=== PATIENT | female | born 1945 | race Caucasian/White ===

== ENCOUNTER 2017-04-21 19:54 | Emergency (ER) | payer MEDICARE, OTHER ==
[~2017-04-21] VITALS: Ht 154.9 cm; Wt 70.3 kg
[~2017-04-21 19:54] MED LIST: CLID1CAP PO; CLOP75TA15 PO; DONE10TA11 PO; DULO30CA2 PO; LEVO88TA2 PO; LORA1TAB PO; MIRT30TA PO; PROP10TA10 PO; SIMV40TA2 PO; SITA1TBM4 PO; [UNRECOGNIZED DRUG - CODE] PO; [UNRECOGNIZED DRUG - CODE] PO
--- NOTE | 2017-04-21 21:15 | NUR ---
[employer] phone used for [employer] translation, Check Processing Clerk #[id number]
[2017-04-21] MEDS ORDERED: IV NORMAL SALINE 500 ML BAG IV ONE (21:30)
[2017-04-21 22:05] LABS: CREATININE 0.8 mg/dL (0.6-1.3); POTASSIUM 3.7 mmol/L (3.5-5.1)
[2017-04-21 22:11] LABS: BASOPHILS % (AUTO) 0.3 % (0.0-2.0); EOSINOPHILS # (AUTO) 0.2 K/uL (0.0-0.7); EOSINOPHILS % (AUTO) 1.9 % (0.0-7.0); HEMATOCRIT 36.4 % (37-47); HEMOGLOBIN 12.2 G/DL (12.0-16.0); LYMPHOCYTES # (AUTO) 2.5 K/UL (0.8-4.8); LYMPHOCYTES % (AUTO) 24.2 % (20.5-51.5); MEAN CORPUSCULAR HEMOGLOBIN 29.2 UUG (27.0-31.0); MEAN CORPUSCULAR HGB CONC 34 g/dL (32.0-37.0); MEAN CORPUSCULAR VOLUME 87.1 FL (81.0-99.0); MONOCYTES # (AUTO) 0.7 K/UL (0.1-1.30); NEUTROPHILS # (AUTO) 6.8 K/UL (1.8-8.9); NEUTROPHILS % (AUTO) 66.6 % (38.5-71.5); PLATELET COUNT (AUTO) 418 K/UL (150-450); RED BLOOD CELL COUNT(AUTO) 4.17 MIL/UL (4.2-5.4); WHITE BLOOD COUNT (AUTO) 10.2 K/UL (4.0-11.2)
[2017-04-21 22:23] LABS: BILIRUBIN,DIRECT 0.1 mg/dL (0.0-0.2); BILIRUBIN,TOTAL 0.3 mg/dL (0.2-1.0); TOTAL PROTEIN, SERUM 8.6 g/dL (6.4-8.2)
[2017-04-21 22:55] LABS: *BILIRUBIN,URIN NEGATIVE (NEGATIVE); *BLOOD, URINE NEGATIVE (NEGATIVE); *CLARITY,URINE CLEAR (CLEAR); *COLOR,URINE STRAW (YELLOW); *KETONES,URINE NEGATIVE (NEGATIVE); *PROTEIN,URINE NEGATIVE (NEGATIVE); *UROBILINOGEN,URINE 0.2 E.U./dl (NORMAL); LEUKOCYTE ESTERASE ,URINE NEGATIVE (NEGATIVE); NITRITE, URINE NEGATIVE (NEGATIVE); PH,URINE 6.5 (5.0-8.0)
[2017-04-21 22:59] LABS: UGLUCOSE 2+ (NEGATIVE)
[2017-04-21 23:04] LABS: BACTERIA,URINE NONE SEEN /HPF (NONE SEEN); RBC,URINE NONE SEEN /HPF (0-3); SQUAMOUS EPITHELIAL CELL,UR NONE SEEN /HPF (NONE SEEN); WBC,URINE NONE SEEN /HPF (0-3)
--- NOTE | 2017-04-21 23:11 | NUR ---
Patient discharged to home in stable conditon. Written and verbal after care instructions given. Patient, and her daughter, verbalize understanding of instructions.
[2017-04-21 23:12] VITALS: BP 148/78
== END 2017-04-21 23:18 | disposition home or self-care (01) ==
LOC: ER 19:55
DX: Z00.8 Encounter for other general examination (principal); K21.9 Gastro-esophageal reflux disease without esophagitis; E11.9 Type 2 diabetes mellitus without complications; I10 Essential (primary) hypertension; E03.9 Hypothyroidism, unspecified; F03.90 Unspecified dementia, unspecified severity, without behavioral disturbance, psychotic disturbance, mood disturbance, and anxiety
CPT/HCPCS: 36415; 70030-TC; 71010; 83605; 85025; 87040; 87086; 93005; A4663; J7030

== ENCOUNTER 2017-08-21 12:28 | Emergency (ER) | payer MEDICARE, OTHER ==
[~2017-08-21] VITALS: Ht 152.4 cm; Wt 63.5 kg
[2017-08-21] MEDS ORDERED: LEVO137T24 PO (12:55)
[2017-08-21] MEDS ORDERED: CHOL4PAC9 PO (12:55)
[2017-08-21] MEDS ORDERED: MG T1TAB4 PO (12:55)
[2017-08-21] MEDS ORDERED: GLIP-19 PO (12:55)
[2017-08-21] MEDS ORDERED: RANI300C PO (12:55)
[2017-08-21] MEDS ORDERED: ACET-2605 PO (12:55)
[2017-08-21] MEDS ORDERED: CLON1TAB PO (12:55)
[2017-08-21] MEDS ORDERED: SERT100T PO (12:55)
[2017-08-21] MEDS ORDERED: FLUT1BLS IH (12:55)
[2017-08-21] MEDS ORDERED: DICL100G16 TP (12:55)
[2017-08-21] MEDS ORDERED: DEXL60CA3 PO (12:55)
[2017-08-21] MEDS ORDERED: MEMA1CAP3 PO (12:55)
[2017-08-21] MEDS ORDERED: DULA1.5P SQ (12:55)
[2017-08-21] MEDS ORDERED: KETO15CR2 TP (12:55)
[2017-08-21] MEDS ORDERED: LISI-607 PO (12:55)
[2017-08-21] MEDS ORDERED: SIME80TA14 PO (12:55)
[2017-08-21] MEDS ORDERED: CANA300T PO (12:55)
[2017-08-21] MEDS ORDERED: CARV6.25 PO (12:55)
[2017-08-21] MEDS ORDERED: FOLI1TAB16 PO (12:55)
[2017-08-21] MEDS ORDERED: ONDANSETRON 4 MG/2 ML VIAL ONE (12:57)
[2017-08-21] MEDS ORDERED: MORPHINE SULFATE 4 MG/1 ML DISP.SYRIN ONE (12:57)
[2017-08-21] MEDS ORDERED: ONDANSETRON 4 MG/2 ML VIAL IV ONE (13:00)
[2017-08-21] MEDS ORDERED: MORPHINE SULFATE 2 MG/1 ML DISP.SYRIN IV ONE (13:00)
[2017-08-21] MEDS ORDERED: IV NORMAL SALINE 1000 ML BAG IV ONE (13:00)
[2017-08-21 13:13] LABS: BASOPHILS % (AUTO) 0.7 % (0.0-2.0); EOSINOPHILS # (AUTO) 0.1 K/uL (0.0-0.7); EOSINOPHILS % (AUTO) 1.4 % (0.0-7.0); HEMATOCRIT 35.7 % (31.2-41.9); HEMOGLOBIN 11.7 g/dL (10.9-14.3); LYMPHOCYTES # (AUTO) 1.6 K/uL (20.0-40.0); LYMPHOCYTES % (AUTO) 22.4 % (20.5-51.5); MEAN CORPUSCULAR HGB CONC 33 g/dL (32.3-35.6); MEAN CORPUSCULAR VOLUME 82.2 fL (75.5-95.3); MONOCYTES # (AUTO) 0.4 K/uL (2.0-10.0); MONOCYTES % (AUTO) 6.2 % (0.0-11.0); NEUTROPHILS % (AUTO) 69.3 % (38.5-71.5); PLATELET COUNT (AUTO) 382 K/uL (179-408); RED BLOOD CELL COUNT(AUTO) 4.34 MIL/uL (3.63-4.92); WHITE BLOOD COUNT (AUTO) 7.3 K/uL (3.8-11.8)
--- NOTE | 2017-08-21 13:13 | NUR ---
Pt out of Er for ct.
[2017-08-21 13:21] LABS: *BILIRUBIN,URIN NEGATIVE (NEGATIVE); *BLOOD, URINE NEGATIVE (NEGATIVE); *CLARITY,URINE CLEAR (CLEAR); *COLOR,URINE YELLOW (YELLOW); *KETONES,URINE NEGATIVE (NEGATIVE); *PROTEIN,URINE NEGATIVE (NEGATIVE); *UROBILINOGEN,URINE 0.2 E.U./dl (NORMAL); LEUKOCYTE ESTERASE ,URINE NEGATIVE (NEGATIVE); NITRITE, URINE NEGATIVE (NEGATIVE)
[2017-08-21 13:28] LABS: UGLUCOSE 2+ (NEGATIVE)
[2017-08-21 13:33] LABS: BACTERIA,URINE FEW /HPF (NONE SEEN); RBC,URINE 0-3 /HPF (0-3); SQUAMOUS EPITHELIAL CELL,UR FEW /HPF (NONE SEEN); WBC,URINE 0-3 /HPF (0-3)
[2017-08-21 14:02] LABS: CREATININE 0.7 mg/dL (0.6-1.3)
[2017-08-21 14:08] LABS: BILIRUBIN,DIRECT 0.1 mg/dL (0.0-0.2); BILIRUBIN,TOTAL 0.2 mg/dL (0.2-1.0); TOTAL PROTEIN, SERUM 7.6 g/dL (6.4-8.2)
--- NOTE | 2017-08-21 14:22 | NUR ---
IV removed. Catheter intact and site benign. Pressure and 4x4 gauze applied to site. No bleeding noted.
[2017-08-21 14:23] VITALS: BP 114/63
--- NOTE | 2017-08-21 14:24 | NUR ---
Patient discharged to home in stable conditon. Written and verbal after care instructions given. Patient verbalizes understanding of instructions.
== END 2017-08-21 14:24 | disposition home or self-care (01) ==
LOC: ER 12:29
DX: K59.00 Constipation, unspecified (principal); M54.31 Sciatica, right side; M54.9 Dorsalgia, unspecified; E11.9 Type 2 diabetes mellitus without complications; I10 Essential (primary) hypertension; K21.9 Gastro-esophageal reflux disease without esophagitis; E03.9 Hypothyroidism, unspecified; Z79.51 Long term (current) use of inhaled steroids; Z79.01 Long term (current) use of anticoagulants; Z79.899 Other long term (current) drug therapy; Z79.84 Long term (current) use of oral hypoglycemic drugs
CPT/HCPCS: 36415; 83690; 85025; 87086; A4663; J2270; J2405; J7030

== ENCOUNTER 2017-08-26 18:40 | Emergency (ER) | payer MEDICARE, OTHER ==
[~2017-08-26] VITALS: Ht 152.4 cm; Wt 70.8 kg
[~2017-08-26 18:40] MED LIST changes: +ACET-2605 PO; +CANA300T PO; +CARV6.25 PO; +CHOL4PAC9 PO; -CLID1CAP PO; +CLON1TAB PO; -CLOP75TA15 PO; +DEXL60CA3 PO; +DICL100G16 TP; -DONE10TA11 PO; +DULA1.5P SQ; -DULO30CA2 PO; +FLUT1BLS IH; +FOLI1TAB16 PO; +GLIP-19 PO; +KETO15CR2 TP; +LEVO137T24 PO; -LEVO88TA2 PO; +LISI-607 PO; +MEMA1CAP3 PO; +MG T1TAB4 PO; -MIRT30TA PO; -PROP10TA10 PO; +RANI300C PO; +SERT100T PO; +SIME80TA14 PO; -[UNRECOGNIZED DRUG - CODE] PO
--- NOTE | 2017-08-26 19:22 | NUR ---
XRAY AT PT BEDSIDE.
[2017-08-26 19:24] LABS: BASOPHILS # (AUTO) 0.1 K/uL (0.0-8.0); BASOPHILS % (AUTO) 0.8 % (0.0-2.0); EOSINOPHILS # (AUTO) 0.1 K/uL (0.0-0.7); EOSINOPHILS % (AUTO) 1.6 % (0.0-7.0); HEMATOCRIT 33.3 % (31.2-41.9); HEMOGLOBIN 11.1 g/dL (10.9-14.3); LYMPHOCYTES # (AUTO) 2.2 K/uL (20.0-40.0); LYMPHOCYTES % (AUTO) 26.3 % (20.5-51.5); MEAN CORPUSCULAR HEMOGLOBIN 27.1 uug (24.7-32.8); MEAN CORPUSCULAR HGB CONC 33 g/dL (32.3-35.6); MEAN CORPUSCULAR VOLUME 81.5 fL (75.5-95.3); MONOCYTES # (AUTO) 0.6 K/uL (2.0-10.0); MONOCYTES % (AUTO) 7.7 % (0.0-11.0); NEUTROPHILS # (AUTO) 5.2 K/uL (1.8-8.9); NEUTROPHILS % (AUTO) 63.6 % (38.5-71.5); PLATELET COUNT (AUTO) 419 K/uL (179-408); RED BLOOD CELL COUNT(AUTO) 4.09 MIL/uL (3.63-4.92); WHITE BLOOD COUNT (AUTO) 8.2 K/uL (3.8-11.8)
[2017-08-26] MEDS ORDERED: DEXTROSE 50% 50 ML DISP.SYRIN IV ONE (19:30)
[2017-08-26] MEDS ORDERED: IV NS 1000 ML 1,000 ML IV ONE (19:30)
[2017-08-26 19:34] LABS: ETHANOL < 3 MG/DL (0-0)
[2017-08-26 19:39] LABS: ACETAMINOPHEN < 2.0 ug/mL (10-30); ALANINE AMINOTRANSFERASE 22 U/L (14-59); ALKALINE PHOSPHATASE 75 U/L (50-136); ASPARTATE AMINOTRANSFERASE 16 U/L (15-37); BILIRUBIN,DIRECT 0.1 mg/dL (0.0-0.2); BILIRUBIN,TOTAL 0.1 mg/dL (0.2-1.0); CARBON DIOXIDE 28 mmol/L (21-32); CHLORIDE 92 mmol/L (98-107); CREATININE 0.7 mg/dL (0.6-1.3); GLUCOSE 63 mg/dL (74-106); POTASSIUM 4.1 mmol/L (3.5-5.1); TOTAL PROTEIN, SERUM 7.4 g/dL (6.4-8.2); UREA NITROGEN, BLOOD 6 mg/dL (7-18)
[2017-08-26] MEDS ORDERED: DEXTROSE 50% 50 ML DISP.SYRIN ONE (19:43)
[2017-08-26 19:47] LABS: THYROID STIMULATING HORMONE 1.702 mIU/mL (0.358-3.740)
[2017-08-26] MEDS ORDERED: DIVA250T6 PO (19:56)
[2017-08-26] MEDS ORDERED: DESV50TA20 PO (19:56)
[2017-08-26] MEDS ORDERED: METH-406 PO (19:56)
[2017-08-26] MEDS ORDERED: SITA1TAB6 PO (19:56)
[2017-08-26] MEDS ORDERED: BIFI460C PO (19:56)
[2017-08-26] MEDS ORDERED: CARI350T27 PO (19:56)
[2017-08-26] MEDS ORDERED: DIPH25CA83 PO (19:56)
[2017-08-26] MEDS ORDERED: DULO60CA45 PO (19:56)
[2017-08-26] MEDS ORDERED: RISP1TAB7 PO (19:56)
[2017-08-26] MEDS ORDERED: METO-295 PO (19:56)
[2017-08-26] MEDS ORDERED: RISP2TAB5 PO (19:56)
[2017-08-26] MEDS ORDERED: PROC10TA13 PO (19:56)
[2017-08-26] MEDS ORDERED: CALC1TAB91 PO (19:56)
[2017-08-26] MEDS ORDERED: ONDA4TAB10 PO (19:56)
[2017-08-26] MEDS ORDERED: ENZY1CAP5 PO (19:56)
[2017-08-26 20:30] LABS: *BILIRUBIN,URIN NEGATIVE (NEGATIVE); *BLOOD, URINE NEGATIVE (NEGATIVE); *CLARITY,URINE CLEAR (CLEAR); *COLOR,URINE YELLOW (YELLOW); *KETONES,URINE NEGATIVE (NEGATIVE); *PROTEIN,URINE NEGATIVE (NEGATIVE); *UROBILINOGEN,URINE 0.2 E.U./dl (NORMAL); LEUKOCYTE ESTERASE ,URINE NEGATIVE (NEGATIVE); NITRITE, URINE NEGATIVE (NEGATIVE)
[2017-08-26 20:44] LABS: UGLUCOSE 2+ (NEGATIVE)
[2017-08-26 20:45] LABS: SQUAMOUS EPITHELIAL CELL,UR FEW /HPF (NONE SEEN); WBC,URINE 0-3 /HPF (0-3)
--- NOTE | 2017-08-26 20:48 | NUR ---
MARY WHEELER AT PT BEDSIDE FOR CONSULT.
[2017-08-26 20:57] LABS: *AMPHETAMINE, URINE NEGATIVE (NEGATIVE); *BARBITURATE, URINE POSITIVE (NEGATIVE); *CANNABINOID, URINE NEGATIVE (NEGATIVE); *COCCAINE, URINE NEGATIVE (NEGATIVE); *OPIATE, URINE NEGATIVE (NEGATIVE); *PHENCYCLIDINE SCREEN,URINE NEGATIVE (NEGATIVE)
[2017-08-26] MEDS ORDERED: CLONAZEPAM 0.5 MG TABLET PO ONE (21:15)
[2017-08-26] MEDS ORDERED: CLONAZEPAM 1 MG TABLET ONE (21:19)
--- NOTE | 2017-08-26 21:30 | NUR ---
Patient discharged to home in stable conditon. Written and verbal after care instructions given. Patient verbalizes understanding of instructions. IV removed w/ catheter intact. Pressure applied. No bleeding noted at site. Pt accompanied by daughter.
[2017-08-26 21:40] VITALS: BP 124/58
== END 2017-08-26 21:40 | disposition home or self-care (01) ==
LOC: ER 18:42
DX: F32.9 Major depressive disorder, single episode, unspecified (principal); E87.1 Hypo-osmolality and hyponatremia; I10 Essential (primary) hypertension; K21.9 Gastro-esophageal reflux disease without esophagitis; E11.9 Type 2 diabetes mellitus without complications; E03.9 Hypothyroidism, unspecified; Z79.51 Long term (current) use of inhaled steroids; Z79.01 Long term (current) use of anticoagulants; Z79.899 Other long term (current) drug therapy
CPT/HCPCS: 36415; 71045; 74018; 80164; 80307; 84443; 85025; 93005; A4663; G0480; G0480-TC; J3490; J7030; J7060